=== PATIENT | female | born 1965 | race Two or more races ===

== ENCOUNTER 2022-02-25 05:23 | Day surgery (SDC) | payer OTHER ==
[~2022-02-25] VITALS: Ht 172.7 cm; Wt 81.6 kg
[~2022-02-25 05:23] MED LIST: AMBIEN10 MG; ATIVAN2 M1; LAMICTAL200 M1; LOSARTAN POTASS50 MG; ONFI10 MG; SEROQUEL400 MG
[2022-02-25] MEDS ORDERED: COLACE100 MG PO (10:35)
[2022-02-25] MEDS ORDERED: PERCOCET 5-3251 EACH PO (10:35)
[2022-02-25] MEDS ORDERED: NEURONTIN300 MG PO (10:35)
== END 2022-02-25 15:55 | disposition home or self-care (01) ==
LOC: CIR.AMB 05:23
PROVIDERS: ATTEND Surgery
DX: K64.5 Perianal venous thrombosis (principal); Z88.8 Allergy status to other drugs, medicaments and biological substances; I10 Essential (primary) hypertension; G40.802 Other epilepsy, not intractable, without status epilepticus; Z88.6 Allergy status to analgesic agent; Z20.822 Contact with and (suspected) exposure to COVID-19

== ENCOUNTER 2025-02-25 07:00 | Inpatient (IN) | payer OTHER ==
[~2025-02-25] VITALS: Ht 172.7 cm; Wt 90.7 kg
[~2025-02-25 07:00] MED LIST changes: +COLACE100 MG PO; +NEURONTIN300 MG PO; +PERCOCET 5-3251 EACH PO
[2025-02-25 08:39] LABS: BASO % 0.8 % (0.1-1.2); EOS # 0.11 (0.04-0.54); EOS % 2.3 % (0.7-7.0); LYMPH # 1.91 (1.18-3.74); LYMPH % 39.4 % (19.3-53.1); MEAN PLATELET VOLUME 9.70 fl (9.4-12.4); MONO # 0.56 (0.24-0.82); MONO % 11.5 % (4.7-12.5); NEUT # 2.22 (1.56-6.13); NEUT % 45.8 % (34.0-71.1); RED CELL DISTRIBUTION WIDTH 13.4 % (11.6-14.4)
[2025-02-25 08:42] LABS: URINE APPEARANCE Cloudy; URINE BILIRRUBIN Negative (NEGATIVE); URINE BLOOD Negative; URINE COLOR Yellow; URINE GLUCOSE Negative (NEGATIVE); URINE KETONE Negative (NEGATIVE); URINE LEUKOCYTE Negative; URINE NITRATE Negative; URINE PROTEIN Negative (NEGATIVE); URINE UROBILINOGEN 0.2 E.U./dl
[2025-02-25 08:44] LABS: URINE BACTERIA 4367.8 uL (0.0-1933); URINE RBC 85.9 uL (0.0-20.8); URINE WBC 30.0 uL (0.0-23.2)
[2025-02-25 08:48] VITALS: BP 113/77
[2025-02-25 08:58] LABS: TYPE CELLS SQUAMOUS; URINE CAST 0.29 uL (0.0-1.40); URINE EPITHELIAL CELLS > 201.7 uL (0.0-38.8)
[2025-02-25 08:59] LABS: URINE CRYSTALS FEW /HPF
[2025-02-25 09:05] LABS: ALT/SGPT 17.0 U/L (12-78); AST/SGOT 18.0 U/L (15-37); BILIRUBIN TOTAL 0.25 mg/dL (0.3-1.2); BUN CREA RATIO 18.0 (7.0-25.0); CREATININE SERUM 0.92 mg/dL (0.55-1.02); GFR 62.7; GLOBULINA 3.7 G/DL (2.4-3.5); GLUCOSE FASTING 93.0 mg/dL (65-100); OSMOLALITY SERUM 281.0 MOSM/KG (275-295)
[2025-02-25 09:10] LABS: INR 0.99
[2025-03-04] MEDS ORDERED: BUPIVACAINE HCL/PF 0.25% 30ML VIAL InF ONE (09:45)
[2025-03-04] MEDS ORDERED: ISOPROPYL ALCOHOL 30 ML OUNCE TOP ONE (09:45)
[2025-03-04] MEDS ORDERED: MORPHINE SULFATE 4 MG/ML CARTRIDGE IV ONE (09:45)
[2025-03-04] MEDS ORDERED: CEFAZOLIN SODIUM 1,000 MG VIAL IV ONE (09:45)
[2025-03-04] MEDS ORDERED: LIDOCAINE HCL 1%/EPINEPHRINE 20ML VIAL IJ ONE (09:45)
[2025-03-04] MEDS ORDERED: TRANEXAMIC ACID 100MG/1ML (1000MG) AMPUL IV ONE ×3 (10:00)
[2025-03-04] MEDS ORDERED: ONDANSETRON HCL 2 MG/ML VIAL IV PRN (10:30)
[2025-03-04] MEDS ORDERED: MORPHINE SULFATE 4 MG/ML CARTRIDGE IV SCH (12:00)
[2025-03-04] MEDS ORDERED: CEFAZOLIN SODIUM 1,000 MG VIAL IV SCH (12:00)
[2025-03-04] MEDS ORDERED: MORPHINE SULFATE 4 MG/ML VIAL IV ONE ×2 (13:10→13:40)
[2025-03-04] MEDS ORDERED: LAMOTRIGINE 200 MG PO SCH (15:51)
[2025-03-04 17:18] VITALS: BP 134/84; O2SAT 93
[2025-03-04] MEDS ORDERED: PATIENTS OWN MEDICATION (MEDICAMENTO EN PISO) PO SCH (21:00)
[2025-03-04] MEDS ORDERED: GABAPENTIN 100 MG CAPSULE PO SCH (21:00)
[2025-03-04] MEDS ORDERED: ORPHENADRINE CITRATE 100 MG TABLET PO SCH (21:00)
[2025-03-05 00:52] VITALS: BP 135/82; O2SAT 100
[2025-03-05 06:53] LABS: BASO % 0.3 % (0.1-1.2); EOS # 0.00 (0.04-0.54); EOS % 0.0 % (0.7-7.0); LYMPH # 0.86 (1.18-3.74); LYMPH % 7.6 % (19.3-53.1); MEAN PLATELET VOLUME 9.90 fl (9.4-12.4); MONO # 1.03 (0.24-0.82); MONO % 9.2 % (4.7-12.5); NEUT # 9.27 (1.56-6.13); NEUT % 82.4 % (34.0-71.1); RED CELL DISTRIBUTION WIDTH 13.0 % (11.6-14.4)
[2025-03-05 12:04] LABS: COVID-19 AG NEGATIVE (NEGATIVE)
[2025-03-05 12:34] VITALS: BP 158/73; O2SAT 98
[2025-03-05] MEDS ORDERED: OxyCODONE HCL 5 MG TABLET (ROXICODONE) PO PRN (13:15)
[2025-03-05 16:00] VITALS: BP 148/89; O2SAT 95
[2025-03-06 03:01] VITALS: BP 134/82; O2SAT 96
[2025-03-06] MEDS ORDERED: ENALAPRILAT DIHYDRATE 1.25 MG/ML VIAL IV PRN (06:00)
[2025-03-06 06:19] LABS: BASO % 0.2 % (0.1-1.2); EOS # 0.01 (0.04-0.54); EOS % 0.1 % (0.7-7.0); LYMPH # 1.47 (1.18-3.74); LYMPH % 12.2 % (19.3-53.1); MEAN PLATELET VOLUME 10.00 fl (9.4-12.4); MONO # 1.42 (0.24-0.82); MONO % 11.8 % (4.7-12.5); NEUT # 9.06 (1.56-6.13); NEUT % 75.2 % (34.0-71.1); RED CELL DISTRIBUTION WIDTH 13.1 % (11.6-14.4)
[2025-03-06 08:52] VITALS: BP 94/66; O2SAT 95
[2025-03-06] MEDS ORDERED: ENOXAPARIN SODIUM 30 MG/0.3 ML SYRINGE SUBCUTANEO SCH (09:00)
[2025-03-06] MEDS ORDERED: PANTOPRAZOLE SODIUM 40 MG TABLET.DR PO SCH (09:00)
[2025-03-06] MEDS ORDERED: XARELTO10 MG PO (10:58)
[2025-03-06] MEDS ORDERED: NORFLEX100MG PO (10:58)
[2025-03-06] MEDS ORDERED: OXYCODONE HCL5 MG PO (10:59)
[2025-03-06 15:47] VITALS: BP 94/67; O2SAT 95
== END 2025-03-06 16:58 | disposition home or self-care (01) | DRG 470 ==
LOC: SURG 03-04 07:00 → O/R 03-04 07:00 → SURG 03-04 10:00
PROVIDERS: ADMIT Orthopaedic Surgery; ATTEND Orthopaedic Surgery
PROC: 0SRC0JZ Replacement of Right Knee Joint with Synthetic Substitute, Open Approach (ICD-10-PCS; principal; 2025-03-04 10:00)
DX: M17.11 Unilateral primary osteoarthritis, right knee (principal); M85.661 Other cyst of bone, right lower leg